=== PATIENT | female | born 1935 | race Caucasian/White ===

== ENCOUNTER 2017-11-16 12:14 | Emergency (ER) | payer OTHER ==
[~2017-11-16] VITALS: Ht 160 cm; Wt 67.1 kg
[~2017-11-16 12:14] MED LIST: BENADRYL25 MG PO; CRESTOR10 MG; DIOVAN HCT 160-1 TAB PO; LIPITOR20 MG PO; METFORMIN HCL500 MG; NORFLEX100 MG PO; NORVASC5 MG; TUSSI-PRES LIQ118 ML PO; ZITHROMAX500 MG PO
== END 2017-11-16 14:55 | disposition home or self-care (01) ==
LOC: ER 12:14
DX: S90.862A Insect bite (nonvenomous), left foot, initial encounter (principal); W57.XXXA Bitten or stung by nonvenomous insect and other nonvenomous arthropods, initial encounter; Y93.89 Activity, other specified; Y92.89 Other specified places as the place of occurrence of the external cause; Y99.8 Other external cause status

== ENCOUNTER 2017-11-22 09:07 | Outpatient (CLI) | payer OTHER | END 2017-11-22 09:25 | disposition home or self-care (01) | LOC: LAB 09:07 | DX: D50.8 Other iron deficiency anemias (principal); E03.8 Other specified hypothyroidism; E78.2 Mixed hyperlipidemia; I11.9 Hypertensive heart disease without heart failure; E56.8 Deficiency of other vitamins; N39.0 Urinary tract infection, site not specified; N18.3 Chronic kidney disease, stage 3 (moderate); E11.21 Type 2 diabetes mellitus with diabetic nephropathy; D63.1 Anemia in chronic kidney disease; N30.00 Acute cystitis without hematuria; E78.4 Other hyperlipidemia ==

== ENCOUNTER 2017-12-24 08:52 | Outpatient (CLI) | payer OTHER | END 2017-12-24 09:03 | disposition home or self-care (01) | LOC: MAMO-SONO 08:52 | DX: Z12.31 Encounter for screening mammogram for malignant neoplasm of breast (principal); Z87.898 Personal history of other specified conditions; N64.89 Other specified disorders of breast ==

== ENCOUNTER → 2018-01-26 | Outpatient (CLI) | payer OTHER | END | disposition home or self-care (01) | LOC: NUCLEAR 09:12 | DX: M81.0 Age-related osteoporosis without current pathological fracture (principal) ==

== ENCOUNTER 2018-02-21 09:38 | Emergency (ER) | payer OTHER ==
[~2018-02-21] VITALS: Ht 160 cm; Wt 67.1 kg
== END 2018-02-21 14:17 | disposition home or self-care (01) ==
LOC: ER 09:38
DX: B34.9 Viral infection, unspecified (principal); J11.1 Influenza due to unidentified influenza virus with other respiratory manifestations

== ENCOUNTER 2018-02-28 09:17 | Outpatient (CLI) | payer OTHER | END 2018-02-28 13:06 | disposition home or self-care (01) | LOC: LAB 09:17 | DX: D50.8 Other iron deficiency anemias (principal); E03.8 Other specified hypothyroidism; E78.2 Mixed hyperlipidemia; I11.9 Hypertensive heart disease without heart failure; E56.8 Deficiency of other vitamins; N39.0 Urinary tract infection, site not specified; Z12.11 Encounter for screening for malignant neoplasm of colon; R19.5 Other fecal abnormalities; E55.9 Vitamin D deficiency, unspecified; R82.79 Other abnormal findings on microbiological examination of urine; N19 Unspecified kidney failure; R80.8 Other proteinuria; D64.89 Other specified anemias; N18.1 Chronic kidney disease, stage 1; C18.0 Malignant neoplasm of cecum; I10 Essential (primary) hypertension ==

== ENCOUNTER 2018-04-13 07:53 | Outpatient (CLI) | payer OTHER | END 2018-04-13 17:00 | disposition home or self-care (01) | LOC: SONOGRAMA 07:53 | DX: R10.84 Generalized abdominal pain (principal); N18.3 Chronic kidney disease, stage 3 (moderate); R31.9 Hematuria, unspecified ==

== ENCOUNTER 2018-05-23 07:31 | Outpatient (CLI) | payer OTHER | END 2018-05-23 07:36 | disposition home or self-care (01) | LOC: LAB 07:31 | DX: D50.8 Other iron deficiency anemias (principal); E03.8 Other specified hypothyroidism; E78.2 Mixed hyperlipidemia; I11.9 Hypertensive heart disease without heart failure; E56.8 Deficiency of other vitamins; N39.0 Urinary tract infection, site not specified; Z12.11 Encounter for screening for malignant neoplasm of colon; R19.5 Other fecal abnormalities; E55.9 Vitamin D deficiency, unspecified; E11.9 Type 2 diabetes mellitus without complications; R80.8 Other proteinuria; K92.1 Melena; N18.3 Chronic kidney disease, stage 3 (moderate); E11.21 Type 2 diabetes mellitus with diabetic nephropathy; D63.1 Anemia in chronic kidney disease; N30.00 Acute cystitis without hematuria; R82.79 Other abnormal findings on microbiological examination of urine ==

== ENCOUNTER 2018-10-03 07:22 | Outpatient (CLI) | payer OTHER | END 2018-10-03 07:26 | disposition home or self-care (01) | LOC: LAB 07:22 | DX: E78.2 Mixed hyperlipidemia (principal); I11.9 Hypertensive heart disease without heart failure; E56.8 Deficiency of other vitamins; N39.0 Urinary tract infection, site not specified; Z12.11 Encounter for screening for malignant neoplasm of colon; R19.5 Other fecal abnormalities; E55.9 Vitamin D deficiency, unspecified; E11.9 Type 2 diabetes mellitus without complications; C18.0 Malignant neoplasm of cecum; K92.1 Melena; E03.8 Other specified hypothyroidism; D64.89 Other specified anemias; R80.8 Other proteinuria; N28.89 Other specified disorders of kidney and ureter ==

== ENCOUNTER 2018-11-20 07:23 | Outpatient (CLI) | payer OTHER | END 2018-11-20 07:31 | disposition home or self-care (01) | LOC: LAB 07:23 | DX: R10.84 Generalized abdominal pain (principal); K62.5 Hemorrhage of anus and rectum; E03.8 Other specified hypothyroidism; N18.3 Chronic kidney disease, stage 3 (moderate); E11.21 Type 2 diabetes mellitus with diabetic nephropathy; D63.1 Anemia in chronic kidney disease; N30.00 Acute cystitis without hematuria; E78.49 Other hyperlipidemia ==

== ENCOUNTER 2018-11-20 08:15 | Outpatient (CLI) | payer OTHER | END 2018-11-20 08:22 | disposition home or self-care (01) | LOC: SONOGRAMA 08:15 | DX: R10.84 Generalized abdominal pain (principal); K76.0 Fatty (change of) liver, not elsewhere classified ==

== ENCOUNTER 2018-12-15 12:12 | Emergency (ER) | payer OTHER ==
[~2018-12-15] VITALS: Ht 160 cm; Wt 67.1 kg
[2018-12-15] MEDS ORDERED: FORTAMET500 MG PO (12:24)
== END 2018-12-15 14:10 | disposition home or self-care (01) ==
LOC: ER 12:12
DX: R42 Dizziness and giddiness (principal)

== ENCOUNTER 2018-12-28 09:21 | Outpatient (CLI) | payer OTHER ==
[~2018-12-28 09:21] MED LIST changes: +FORTAMET500 MG PO
== END 2018-12-28 09:29 | disposition home or self-care (01) ==
LOC: MAMO-SONO 09:21
DX: Z12.31 Encounter for screening mammogram for malignant neoplasm of breast (principal); Z87.898 Personal history of other specified conditions; N60.11 Diffuse cystic mastopathy of right breast; N60.12 Diffuse cystic mastopathy of left breast

== ENCOUNTER → 2019-02-04 08:34 | Outpatient (CLI) | payer OTHER | END | disposition home or self-care (01) | LOC: LAB 08:34 | DX: D64.89 Other specified anemias (principal); D70.1 Agranulocytosis secondary to cancer chemotherapy; R74.0 Nonspecific elevation of levels of transaminase and lactic acid dehydrogenase [LDH]; C16.3 Malignant neoplasm of pyloric antrum; D50.8 Other iron deficiency anemias; E03.8 Other specified hypothyroidism; E78.2 Mixed hyperlipidemia; I11.9 Hypertensive heart disease without heart failure; E56.8 Deficiency of other vitamins; N39.0 Urinary tract infection, site not specified; Z12.11 Encounter for screening for malignant neoplasm of colon; E55.9 Vitamin D deficiency, unspecified; N19 Unspecified kidney failure; R80.8 Other proteinuria; C18.0 Malignant neoplasm of cecum; K92.1 Melena ==

== ENCOUNTER 2019-05-22 07:12 | Outpatient (CLI) | payer OTHER | END 2019-05-22 08:23 | disposition home or self-care (01) | LOC: LAB 07:12 | DX: E03.8 Other specified hypothyroidism (principal); N18.3 Chronic kidney disease, stage 3 (moderate); E11.21 Type 2 diabetes mellitus with diabetic nephropathy; D63.1 Anemia in chronic kidney disease; N30.00 Acute cystitis without hematuria; E78.49 Other hyperlipidemia; D50.8 Other iron deficiency anemias; I11.9 Hypertensive heart disease without heart failure; E56.8 Deficiency of other vitamins; Z12.11 Encounter for screening for malignant neoplasm of colon; E55.9 Vitamin D deficiency, unspecified; R80.8 Other proteinuria; C18.0 Malignant neoplasm of cecum; K92.1 Melena; R06.02 Shortness of breath ==

== ENCOUNTER 2019-07-18 16:25 | Emergency (ER) | payer OTHER ==
[~2019-07-18] VITALS: Ht 160 cm; Wt 67.1 kg
[2019-07-19] MEDS ORDERED: IRBESARTAN-HCT1 EACH (08:33)
== END 2019-07-19 12:24 | disposition home or self-care (01) ==
LOC: ER 16:25
DX: I87.2 Venous insufficiency (chronic) (peripheral) (principal); M79.604 Pain in right leg

== ENCOUNTER 2019-07-19 08:15 | Emergency (ER) | payer OTHER ==
[~2019-07-19] VITALS: Ht 160 cm; Wt 67.1 kg
[2019-07-19] MEDS ORDERED: IRBESARTAN-HCT1 EACH (08:33)
== END 2019-07-19 13:15 | disposition home or self-care (01) ==
LOC: ER 08:15
DX: I87.2 Venous insufficiency (chronic) (peripheral) (principal); M79.604 Pain in right leg

== ENCOUNTER 2019-09-14 09:22 | Outpatient (CLI) | payer OTHER ==
[~2019-09-14 09:22] MED LIST changes: +IRBESARTAN-HCT1 EACH
== END 2019-09-14 09:35 | disposition home or self-care (01) ==
LOC: SONOGRAMA 09:22 → MAMO-SONO 10:15
DX: M65.812 Other synovitis and tenosynovitis, left shoulder (principal); M65.811 Other synovitis and tenosynovitis, right shoulder

== ENCOUNTER → 2019-09-17 07:12 | Outpatient (CLI) | payer OTHER | END | disposition home or self-care (01) | LOC: LAB 07:12 | DX: D50.8 Other iron deficiency anemias (principal); E03.8 Other specified hypothyroidism; E78.2 Mixed hyperlipidemia; I11.9 Hypertensive heart disease without heart failure; E56.8 Deficiency of other vitamins; N39.0 Urinary tract infection, site not specified; Z12.11 Encounter for screening for malignant neoplasm of colon; E55.9 Vitamin D deficiency, unspecified; N19 Unspecified kidney failure; E11.9 Type 2 diabetes mellitus without complications; R80.8 Other proteinuria; C18.0 Malignant neoplasm of cecum; K92.1 Melena ==

== ENCOUNTER → 2019-10-30 | Outpatient (CLI) | payer OTHER | END | disposition home or self-care (01) | LOC: LAB 12:23 | DX: M54.5 Low back pain (principal); M16.0 Bilateral primary osteoarthritis of hip; M17.0 Bilateral primary osteoarthritis of knee ==

== ENCOUNTER 2019-11-26 06:41 | Outpatient (CLI) | payer OTHER | END 2019-11-26 06:50 | disposition home or self-care (01) | LOC: LAB 06:41 | DX: D50.8 Other iron deficiency anemias (principal); E03.8 Other specified hypothyroidism; I11.9 Hypertensive heart disease without heart failure; E56.8 Deficiency of other vitamins; Z12.11 Encounter for screening for malignant neoplasm of colon; E55.9 Vitamin D deficiency, unspecified; N19 Unspecified kidney failure; R80.8 Other proteinuria; C18.0 Malignant neoplasm of cecum; K92.1 Melena; E11.21 Type 2 diabetes mellitus with diabetic nephropathy; D63.1 Anemia in chronic kidney disease; N30.00 Acute cystitis without hematuria; E75 Disorders of sphingolipid metabolism and other lipid storage disorders ==

== ENCOUNTER 2019-11-26 07:49 | Outpatient (CLI) | payer OTHER | END 2019-11-26 07:50 | disposition home or self-care (01) | LOC: SONOGRAMA 07:49 | DX: R10.84 Generalized abdominal pain (principal); N18.3 Chronic kidney disease, stage 3 (moderate); R31.29 Other microscopic hematuria ==

== ENCOUNTER 2020-11-16 08:39 | Outpatient (CLI) | payer OTHER | END 2020-11-16 08:50 | disposition HB | LOC: MAMO-SONO 08:39 | PROVIDERS: ATTEND Surgery | DX: N60.11 Diffuse cystic mastopathy of right breast (principal); N60.12 Diffuse cystic mastopathy of left breast; N64.59 Other signs and symptoms in breast ==

== ENCOUNTER 2021-03-09 08:22 | Outpatient (CLI) | payer OTHER | END 2021-03-09 08:29 | disposition home or self-care (01) | LOC: RAD 08:22 → MAMO-SONO 09:15 | PROVIDERS: ATTEND Internal Medicine Geriatric Medicine | DX: I11.9 Hypertensive heart disease without heart failure (principal); R10.84 Generalized abdominal pain; R06.02 Shortness of breath; N18.30 Chronic kidney disease, stage 3 unspecified; R31.29 Other microscopic hematuria; N28.89 Other specified disorders of kidney and ureter ==

== ENCOUNTER 2021-06-07 10:00 | Outpatient (CLI) | payer OTHER | END 2021-06-07 10:10 | disposition home or self-care (01) | LOC: MAMO-SONO 10:00 | PROVIDERS: ATTEND Internal Medicine Geriatric Medicine | DX: N60.12 Diffuse cystic mastopathy of left breast (principal); N60.11 Diffuse cystic mastopathy of right breast; Z12.31 Encounter for screening mammogram for malignant neoplasm of breast; N64.4 Mastodynia; Z80.8 Family history of malignant neoplasm of other organs or systems ==

== ENCOUNTER 2021-08-16 10:00 | Emergency (ER) | payer OTHER ==
[~2021-08-16] VITALS: Ht 160 cm; Wt 61.2 kg
[2021-08-16] MEDS ORDERED: GLUMETZA500 MG PO (10:25)
[2021-08-16] MEDS ORDERED: SKELAGESIC PO (14:24)
== END 2021-08-16 15:46 | disposition home or self-care (01) ==
LOC: ER 10:00
DX: M54.12 Radiculopathy, cervical region (principal)

== ENCOUNTER 2022-04-29 09:32 | Outpatient (CLI) | payer OTHER ==
[~2022-04-29 09:32] MED LIST changes: +GLUMETZA500 MG PO; +SKELAGESIC PO
== END 2022-04-29 09:33 | disposition home or self-care (01) ==
LOC: NUCLEAR 09:32
PROVIDERS: ATTEND Specialist
DX: M81.0 Age-related osteoporosis without current pathological fracture (principal); Z88.6 Allergy status to analgesic agent; Z88.7 Allergy status to serum and vaccine

== ENCOUNTER 2022-06-10 10:38 | Outpatient (CLI) | payer OTHER | END 2022-06-10 10:47 | disposition home or self-care (01) | LOC: RAD 10:38 | PROVIDERS: ATTEND Specialist | DX: Z12.31 Encounter for screening mammogram for malignant neoplasm of breast (principal); N60.11 Diffuse cystic mastopathy of right breast; N60.12 Diffuse cystic mastopathy of left breast; J30.9 Allergic rhinitis, unspecified ==

== ENCOUNTER 2022-10-15 07:54 | Outpatient (CLI) | payer OTHER | END 2022-10-15 07:58 | disposition home or self-care (01) | LOC: SONOGRAMA 07:54 | PROVIDERS: ATTEND Specialist/Technologist, Other Nephrology | DX: R10.9 Unspecified abdominal pain (principal); N18.30 Chronic kidney disease, stage 3 unspecified; R31.9 Hematuria, unspecified ==

== ENCOUNTER 2023-06-03 06:01 | Day surgery (SDC) | payer OTHER ==
[~2023-06-03] VITALS: Ht 160 cm; Wt 57.6 kg
[~2023-06-03 06:01] MED LIST changes: +NORVASC2.5 M1 PO
== END 2023-06-03 10:55 | disposition home or self-care (01) ==
LOC: CIR.AMB 06:01
PROVIDERS: ATTEND Orthopaedic Surgery Hand Surgery
DX: M65.331 Trigger finger, right middle finger (principal); Z20.822 Contact with and (suspected) exposure to COVID-19; E11.9 Type 2 diabetes mellitus without complications; E78.00 Pure hypercholesterolemia, unspecified; I10 Essential (primary) hypertension

== ENCOUNTER → 2023-07-07 | Outpatient (CLI) | payer OTHER | END | disposition home or self-care (01) | LOC: MAMO-SONO 11:22 | PROVIDERS: ATTEND Specialist | DX: Z12.31 Encounter for screening mammogram for malignant neoplasm of breast (principal); N60.11 Diffuse cystic mastopathy of right breast; N60.12 Diffuse cystic mastopathy of left breast ==

== ENCOUNTER 2023-09-02 05:30 | Day surgery (SDC) | payer OTHER ==
[2023-08-26 08:46] LABS: PH,URINE 6.5 (5.0-8.0); URINE APPEARANCE Clear; URINE BILIRRUBIN Negative (NEGATIVE); URINE BLOOD Negative; URINE COLOR Yellow; URINE GLUCOSE Negative (NEGATIVE); URINE LEUKOCYTE Moderate; URINE NITRATE Negative; URINE PROTEIN Negative (NEGATIVE); URINE UROBILINOGEN 0.2 E.U./dl
[2023-08-26 08:49] LABS: URINE BACTERIA 65.5 uL (0.0-1933); URINE EPITHELIAL CELLS 8.1 uL (0.0-38.8); URINE RBC 16.9 uL (0.0-20.8); URINE WBC 20.6 uL (0.0-23.2)
[2023-08-26 09:01] LABS: HEMATOCRIT 38.2 % (36.0-45.00); MEAN CELL VOLUME 97.2 fL (80.00-100.00); MEAN CORPUSCULAR HEMOGLOBIN 33.1 pg (27.00-32.0); PLATELET COUNT 237 K/uL (150-450); RED BLOOD COUNT 3.93 M/uL (4.00-6.00); RED CELL DISTRIBUTION WIDTH 12.8 % (11.5-14.5)
[2023-08-26 09:09] LABS: ALBUMIN 3.5 gm/dL (3.4-5.0); BILIRUBIN TOTAL 0.29 mg/dL (0.3-1.2); CALCIUM 9.8 mg/dL (8.5-10.1); CREATININE SERUM 0.88 mg/dL (0.55-1.02); GFR 60.64; GLOBULINA 3.6 G/DL (2.4-3.5); POTASSIUM 4.3 mEq/L (3.5-5.1); TOTAL PROTEIN 7.1 gm/dL (6.4-8.2)
[2023-08-26 09:14] LABS: INR 0.96; PARTIAL THROMBOPLASTIN TIME 26.2 SECONDS (22.0-34.0); PROTHROMBIN TIME 10.1 SECONDS (9.0-11.5)
== END 2023-09-02 10:50 | disposition home or self-care (01) ==
LOC: CIR.AMB 05:30
PROVIDERS: ATTEND Orthopaedic Surgery Hand Surgery
DX: G56.02 Carpal tunnel syndrome, left upper limb (principal); E11.9 Type 2 diabetes mellitus without complications; E78.00 Pure hypercholesterolemia, unspecified; E78.3 Hyperchylomicronemia; I10 Essential (primary) hypertension; Z20.822 Contact with and (suspected) exposure to COVID-19

== ENCOUNTER 2024-07-02 07:54 | Outpatient (CLI) | payer OTHER | END 2024-07-02 08:13 | disposition home or self-care (01) | LOC: SONOGRAMA 07:54 → MAMO-SONO 07:54 | PROVIDERS: ATTEND Specialist/Technologist, Other Nephrology | DX: N60.11 Diffuse cystic mastopathy of right breast (principal); N60.12 Diffuse cystic mastopathy of left breast; R10.9 Unspecified abdominal pain; N18.30 Chronic kidney disease, stage 3 unspecified; R31.9 Hematuria, unspecified; Z12.31 Encounter for screening mammogram for malignant neoplasm of breast ==

== ENCOUNTER 2024-07-02 11:14 | Outpatient (CLI) | payer OTHER | END 2024-07-02 11:18 | disposition home or self-care (01) | LOC: NUCLEAR 11:14 | PROVIDERS: ATTEND Specialist | DX: M81.0 Age-related osteoporosis without current pathological fracture (principal) ==

== ENCOUNTER 2025-06-28 09:18 | Outpatient (CLI) | payer OTHER | END 2025-06-28 09:24 | disposition home or self-care (01) | LOC: RAD 09:18 | PROVIDERS: ATTEND Internal Medicine | DX: R05.1 Acute cough (principal) ==